=== PATIENT | female | born 1975 | race Caucasian/White ===

== ENCOUNTER → 2016-05-17 | Outpatient (CLI) | payer OTHER ==
[~2016-05-17] MED LIST: BACTRIM DS TABL1 TA1 PO; CELEXA10 MG PO; FLEXERIL10 MG PO; MOBIC PO; NO MEDICATIONS; ONDANSETRON HCL4 M1 PO; PROTONIX PO; VOLTAREN75 MG PO
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
== END | disposition home or self-care (01) ==
LOC: CMRI 13:47
DX: K81.1 Chronic cholecystitis (principal); M54.2 Cervicalgia; Z98.890 Other specified postprocedural states
CPT/HCPCS: 72141